=== PATIENT | female | born 1960 | race Caucasian/White ===

== ENCOUNTER 2016-12-28 19:57 | Emergency (ER) | payer OTHER ==
[~2016-12-28] VITALS: Ht 160 cm; Wt 49.9 kg
[2016-12-28 20:05] VITALS: BP 128/88
--- NOTE | 2016-12-28 22:29 | Emergency Room Report ---
History of Present Illness General Chief Complaint: Alcohol Intoxication Source: Family Member, EMS Present Illness HPI Patient presents by paramedics Main complaint Patient was found on the sidewalk per medics They report that the patient was likely intoxicated patient had bottle of alcohol Next to her Here the patient was initially somewhat somnolent However refuses any further intervention refusing any blood work At this time continues to state that she's doing better Patient does admit to drinking alcohol Allergies: Coded Allergies: No Known Allergies (Unverified , 12/28/16) Patient History Past Medical History: see triage record Pertinent Family History: none Reviewed Nursing Documentation: PMH: Agreed, PSxH: Agreed Nursing Documentation-PMH Hx Cardiac Problems: No Hx Hypertension: No Hx Pacemaker: No Hx Asthma: No Hx COPD: No Hx Diabetes: No Hx Cancer: No Hx Gastrointestinal Problems: No - etoh abuse Hx Dialysis: No History Of Psychiatric Problem: No Hx Neurological Problems: No Hx Cerebrovascular Accident: No Hx Seizures: No Review of Systems All Other Systems: negative except mentioned in HPI Physical Exam Vital Signs Date Time Temp Pulse Resp B/P Pulse Ox O2 Delivery O2 Flow Rate FiO2 12/28/16 19:51 98.1 92 16 130/90 Room Air 12/28/16 20:05 98 Sp02 EP Interpretation: reviewed, normal General Appearance: no apparent distress - However patient appeared mildly disheveled Head: normocephalic, atraumatic Eyes: bilateral eye EOMI, bilateral eye PERRL ENT: hearing grossly normal, normal pharynx, TMs + canals normal, uvula midline Neck: full range of motion, supple, no meningismus, no bony tend Respiratory: lungs clear, normal breath sounds, no rhonchi, no respiratory distress, no retraction, no accessory muscle use Cardiovascular #1: normal peripheral pulses, regular rate, rhythm, no edema, no gallop, no JVD, no murmur Gastrointestinal: normal bowel sounds, non tender, soft, no mass, no organomegaly, non-distended, no guarding, no hernia, no pulsatile mass, no rebound Genitourinary: no CVA tenderness Musculoskeletal: normal inspection Neurologic: oriented x3, responsive, junior linux administrator III-XII nml as tested, motor strength/ tone normal, sensory intact Psychiatric: mood/affect normal Skin: normal color, no rash, warm/dry, palpation normal Lymphatic: normal inspection, no adenopathy Medical Decision Making Diagnostic Impression: Primary Impression: Alcohol abuse ER Course Upon arrival the patient refusing any further intervention or workup After observation patient has sobered and feels better Patient's on her telephone making phone calls and arranging a pickup While waiting for reevaluation Patient left the department Prior to the final disposition Please note that the patient was observed getting into a cab that she call from her phone Last Vital Signs Date Time Temp Pulse Resp B/P Pulse Ox O2 Delivery O2 Flow Rate FiO2 12/28/16 20:05 98.1 80 16 128/88 98 Room Air Status: improved Disposition: HOME, SELF-CARE Condition: Improved Additional Instructions: You have left prior to final disposition Please return to the ER for appropriate paperwork and followup GRISEL TOM D.O. Dec 28, 2016 22:28
[2016-12-28 22:40] VITALS: BP 124/78
[2016-12-28 22:50] VITALS: BP 128/88
== END 2016-12-28 22:50 | disposition home or self-care (01) ==
LOC: EDBD 19:57 → EMR 20:08
DX: F10.10 Alcohol abuse, uncomplicated (principal)
CPT/HCPCS: 99284